=== PATIENT | male | born 1995 | race Hispanic/Latino ===

== ENCOUNTER 2020-03-11 05:58 | Day surgery (SDC) | payer OTHER ==
[2020-03-10 13:01] VITALS: BP 128/81
[~2020-03-11] VITALS: Ht 170.2 cm; Wt 99.3 kg
[2020-03-11] VITALS (17 sets, daily range): BP systolic 106–141; BP diastolic 46–74
[2020-03-11] MEDS ORDERED: CEFAZOLIN SODIUM 1 GM VIAL IVP SCH (06:00)
[2020-03-11] MEDS ORDERED: LACTATED RINGERS 1000ML 1,000 ML IV ONE (07:07)
[2020-03-11] MEDS ORDERED: BUPIVACAINE/PF 0.5% 30ML VIAL ONE (08:52)
[2020-03-11] MEDS ORDERED: FENTANYL CITRATE PF 50 MCG/1 ML 2ML VIAL ONE (10:05)
[2020-03-11] MEDS ORDERED: PROPOFOL 10 MG/ML 20ML VIAL IV ONE (10:05)
[2020-03-11] MEDS ORDERED: LIDOCAINE PF 2% 5ML ABBOJECT ONE (10:05)
[2020-03-11] MEDS ORDERED: ROCURONIUM 10MG/1ML SYR 10 MG/ML ML ONE (10:05)
[2020-03-11] MEDS ORDERED: MIDAZOLAM HCL 1 MG/ML 2ML VIAL ONE (10:05)
[2020-03-11] MEDS ORDERED: SUCCINYLCHOLINE 200MG/10ML SYR ONE (10:05)
[2020-03-11] MEDS ORDERED: EPHEDRINE SULFATE 50 MG/ML AMPULE ONE (10:20)
[2020-03-11] MEDS ORDERED: DEXAMETHASONE SOD PHOSPHATE 4 MG/ML 1ML VIAL ONE (10:25)
[2020-03-11] MEDS ORDERED: ONDANSETRON HCL 4 MG/2 ML VIAL ONE (10:26)
[2020-03-11] MEDS ORDERED: MEPERIDINE-PF 25 MG/ML SYG ONE (11:40)
--- NOTE | 2020-03-11 12:20 | NUR ---
PATIENT ARRIVED TO DAY PATIENT VIA STRETCHER BY DINO SHAW. PATIENT [id number], VITAL SIGNS STABLE, DENIES ANY PAIN AT THIS TIME. DRESSING TO SACRAL IS DRY/INTACT.
--- NOTE | 2020-03-11 12:55 | NUR ---
PATIENT DISCHARGED FROM FACILITY AND ASSISTED INTO PRIVATE VEHICLE DRIVEN BY FATHER
== END 2020-03-11 12:55 | disposition home or self-care (01) ==
LOC: DAH 05:58
PROVIDERS: ATTEND Surgery
DX: L05.91 Pilonidal cyst without abscess (principal); J45.909 Unspecified asthma, uncomplicated; K21.9 Gastro-esophageal reflux disease without esophagitis; E66.9 Obesity, unspecified; Z68.32 Body mass index [BMI] 32.0-32.9, adult; Z79.899 Other long term (current) drug therapy; Z20.828 Contact with and (suspected) exposure to other viral communicable diseases
CPT/HCPCS: 11771; A4215; A4221; A4222; A4223; A4663; A6260; C9803; J0330; J0690 ×2; J1100; J2001; J2175; J2250; J2405; J2704; J3010; J3490 ×2; J7030; J7120; U0003; A4606